=== PATIENT | female | born 1960 | race Caucasian/White ===

== ENCOUNTER → 2016-12-04 | Outpatient (CLI) | payer OTHER ==
[~2016-12-04] MED LIST: MAXALT; MAXALT MLT ODT10 M1 PO; ZOFRAN ODT4 MG PO
== END ==
LOC: RAD 01:30
DX: Z12.31 Encounter for screening mammogram for malignant neoplasm of breast (principal)

== ENCOUNTER → 2018-04-08 | Outpatient (CLI) | payer OTHER | LOC: RAD 07:38 | DX: Z12.31 Encounter for screening mammogram for malignant neoplasm of breast (principal) ==

== ENCOUNTER → 2018-07-29 | Outpatient (CLI) | payer OTHER | LOC: CAT 10:40 | DX: Z13.6 Encounter for screening for cardiovascular disorders (principal); E78.00 Pure hypercholesterolemia, unspecified; I25.10 Atherosclerotic heart disease of native coronary artery without angina pectoris ==

== ENCOUNTER → 2019-03-24 | Outpatient (CLI) | payer OTHER | LOC: CAT 13:23 | DX: K76.89 Other specified diseases of liver (principal) ==

== ENCOUNTER → 2019-09-01 | Outpatient (CLI) | payer OTHER | LOC: BC 15:29 | DX: N63.10 Unspecified lump in the right breast, unspecified quadrant (principal); R92.1 Mammographic calcification found on diagnostic imaging of breast ==

== ENCOUNTER → 2019-09-10 | Outpatient (CLI) | payer OTHER | END | disposition home or self-care (01) | LOC: LAB 08:00 | DX: N63.10 Unspecified lump in the right breast, unspecified quadrant (principal); Z53.8 Procedure and treatment not carried out for other reasons; Z11.59 Encounter for screening for other viral diseases ==

== ENCOUNTER → 2021-01-25 | Outpatient (CLI) | payer OTHER ==
[~2021-01-25] MED LIST changes: +RIZATRIPTAN10 MG PO
== END ==
LOC: RAD 10:09
PROVIDERS: ATTEND Nuclear Medicine Nuclear Cardiology
DX: Z12.31 Encounter for screening mammogram for malignant neoplasm of breast (principal)

== ENCOUNTER 2021-02-19 02:26 | Emergency (ER) | payer OTHER ==
[~2021-02-19] VITALS: Ht 167.6 cm; Wt 65.6 kg
[2021-02-19 02:48] LABS: HEMATOCRIT 36.4 % (37.0-47.0)
[2021-02-19 02:49] LABS: ABSOLUTE NEUTROPHILS 5.6 thou/uL (1.4-8.2); BASOPHILS 1.1 % (0.0-2.0); EOSINOPHILS 2.2 % (0.0-3.0); HEMOGLOBIN 12.3 gm/dL (12.0-15.0); LYMPHOCYTES 30.1 % (24.0-44.0); MCH 31.1 pg (26.0-34.0); MCHC 33.8 g/dL (28.0-37.0); MCV 91.9 fL (80.0-100.0); MONOCYTES 7.9 % (1.0-8.0); PLATELET COUNT 537 thou/uL (150-400); POLYS 58.7 % (36.0-66.0); RBC 3.96 mil/uL (4.20-5.00); RDW 12.4 % (10.5-14.5); WBC 9.5 thou/uL (4.0-11.0)
[2021-02-19 02:50] LABS: CREATININE 0.8 mg/dL (0.6-1.0); POTASSIUM 4.2 mmol/L (3.5-5.1)
[2021-02-19 03:18] VITALS: BP 140/81
== END 2021-02-19 03:18 | disposition home or self-care (01) ==
LOC: ER 02:26
PROVIDERS: Emergency Medicine
DX: G43.909 Migraine, unspecified, not intractable, without status migrainosus (principal); Z90.89 Acquired absence of other organs; Z98.890 Other specified postprocedural states; Z90.49 Acquired absence of other specified parts of digestive tract; Z79.899 Other long term (current) drug therapy